=== PATIENT | male | born 1950 | race Caucasian/White ===

== ENCOUNTER 2024-11-29 06:14 | Day surgery (SDC) | payer MEDICARE, SELFPAY | END 2024-11-29 10:03 | disposition home or self-care (01) | LOC: GI 06:14 | PROVIDERS: ATTENDING PHYSICIAN Surgery | DX: Z12.11 Encounter for screening for malignant neoplasm of colon (principal); K57.30 Diverticulosis of large intestine without perforation or abscess without bleeding; Z86.0100 Personal history of colon polyps, unspecified; Z80.0 Family history of malignant neoplasm of digestive organs; D12.8 Benign neoplasm of rectum | CPT/HCPCS: 45380; 88305 ==